=== PATIENT | female | born 1990 | race Caucasian/White ===

== ENCOUNTER 2024-10-02 10:02 | Outpatient (CLI) | payer OTHER, SELFPAY ==
--- NOTE | 2024-10-02 11:00 | NEURO_ITS ---
Impression: # Complains of increasing numbness of hands. ? # Left severe Carpal Tunnel Syndrome. # No ulnar neuropathy. ? # Normal Needle/EMG exam. ?Nerve Conduction Studies Anti Sensory Summary Table ?Stim Site NR Peak (ms) P-T Amp (?V) Site1 Site2 Delta-P (ms) Dist (cm) Bonifacio (m/s) Left Median Anti Sensory (2-3nd Digit) Wrist ? 8.0 29.4 Wrist 2-3nd Digit 8.0 14.0 18 Wrist ? 8.3 19.7 Wrist 2-3nd Digit 8.0 14.0 18 Right Median Anti Sensory (2-3nd Digit) Wrist ? 2.8 60.7 Wrist 2-3nd Digit 2.8 14.0 50 Wrist ? 2.5 51.4 Wrist 2-3nd Digit 2.8 14.0 50 Left Radial Anti Sensory (Base 1st Digit) Wrist ? 1.5 51.3 Wrist Base 1st Digit 1.5 0.0 Right Radial Anti Sensory (Base 1st Digit) Wrist ? 1.8 14.2 Wrist Base 1st Digit 1.8 0.0 Left Ulnar Anti Sensory (5th Digit) Wrist ? 2.2 81.2 Wrist 5th Digit 2.2 14.0 64 Right Ulnar Anti Sensory (5th Digit) Wrist ? 2.0 70.7 Wrist 5th Digit 2.0 14.0 70 Motor Summary Table ?Stim Site NR Onset (ms) O-P Amp (mV) Site1 Site2 Delta-0 (ms) Dist (cm) Bonifacio (m/s) Left Median Motor (Abd Poll Brev) Wrist ? 7.0 1.3 Elbow Wrist 5.7 30.0 53 Elbow ? 12.7 1.4 Right Median Motor (Abd Poll Brev) Wrist ? 2.7 6.5 Elbow Wrist 5.0 30.0 60 Elbow ? 7.7 6.1 Left Ulnar Motor (Abd Dig Minimi) Wrist ? 2.0 7.0 A Elbow Wrist 4.8 29.0 60 A Elbow ? 6.8 5.9 B Elbow Wrist 3.8 23.0 61 B Elbow ? 5.8 5.3 Right Ulnar Motor (Abd Dig Minimi) Wrist ? 2.5 6.0 A Elbow Wrist 4.9 29.0 59 A Elbow ? 7.4 5.3 B Elbow Wrist 3.7 22.0 59 B Elbow ? 6.2 5.8 F Wave Studies ?NR F-Lat (ms) L-R F-Lat (ms) Left Median (Mrkrs) (Abd Poll Brev) ? 30.61 3.36 Right Median (Mrkrs) (Abd Poll Brev) ? 27.24 3.36 Left Ulnar (Mrkrs) (Abd Dig Min) ? 24.84 1.09 Right Ulnar (Mrkrs) (Abd Dig Min) ? 25.94 1.09 EMG ?Side Muscle Nerve Root Ins Act Fibs Amp Dur Recrt Comment Right 1stDorInt Ulnar C8-T1 Nml Nml Nml Nml Nml Right Ext Indicis Radial (Post Int) C7-8 Nml Nml Nml Nml Nml Right Ext Digitorum Radial (Post Int) C7-8 Nml Nml Nml Nml Nml Right BrachioRad Radial C5-6 Nml Nml Nml Nml Nml Right PronatorTeres Median C6-7 Nml Nml Nml Nml Nml Right Abd Poll Brev Median C8-T1 Nml Nml Nml Nml Nml Right ABD Dig Min Ulnar C8-T1 Nml Nml Nml Nml Nml Right FlexPolLong Median (Ant Int) C7-8 Nml Nml Nml Nml Nml Right Abd Poll Long Radial (Post Int) C7-8 Nml Nml Nml Nml Nml Left 1stDorInt Ulnar C8-T1 Nml Nml Nml Nml Nml Left Ext Indicis Radial (Post Int) C7-8 Nml Nml Nml Nml Nml Left Ext Digitorum Radial (Post Int) C7-8 Nml Nml Nml Nml Nml Left BrachioRad Radial C5-6 Nml Nml Nml Nml Nml Left PronatorTeres Median C6-7 Nml Nml Nml Nml Nml Left Abd Poll Brev Median C8-T1 Nml Nml Nml Nml Nml Left ABD Dig Min Ulnar C8-T1 Nml Nml Nml Nml Nml Left FlexPolLong Median (Ant Int) C7-8 Nml Nml Nml Nml Nml Left Abd Poll Long Radial (Post Int) C7-8 Nml Nml Nml Nml Nml MTDD
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
== END 2024-10-02 10:03 | disposition home or self-care (01) ==
PROVIDERS: Visit Provider Physician Assistant
DX: G56.02 Carpal tunnel syndrome, left upper limb (principal)
CPT/HCPCS: 95886; 95911